=== PATIENT | male | born 1965 | race Caucasian/White ===

== ENCOUNTER 2021-08-24 12:53 | Outpatient (CLI) | payer OTHER ==
[~2021-08-24 12:53] MED LIST: Iopamidol 300 61% 100 ML VIAL FS ONE
== END 2021-08-24 12:54 | disposition home or self-care (01) ==
LOC: CSHCT 12:53
PROVIDERS: ATTEND Surgery
DX: N32.1 Vesicointestinal fistula (principal); Z98.890 Other specified postprocedural states
CPT/HCPCS: 74177